=== PATIENT | male | born 1975 | race African-American/Black ===

== ENCOUNTER 2021-05-12 08:27 | Emergency (ER) | payer BC, SELFPAY ==
[2021-05-12] MEDS ORDERED: Ketorolac Tromethamine 30 MG/ML VIAL ONE (09:06)
== END 2021-05-12 09:09 | disposition home or self-care (01) ==
LOC: CSHERS 08:27
DX: M25.512 Pain in left shoulder (principal)
CPT/HCPCS: 96372; 99283; J1885